=== PATIENT | male | born 1960 | race Caucasian/White ===

== ENCOUNTER → 2023-11-05 12:49 | Outpatient (REF) | payer OTHER, SELFPAY | LOC: RCS 12:49 | PROVIDERS: ATTENDING PHYSICIAN Internal Medicine Cardiovascular Disease; FAMILY PHYSICIAN Family Medicine | DX: R07.89 Other chest pain (principal); I10 Essential (primary) hypertension | CPT/HCPCS: 93017; 93350 ==

== ENCOUNTER → 2023-12-23 15:37 | Outpatient (REF) | payer OTHER, SELFPAY | LOC: DHCBS HW 15:37 | PROVIDERS: ATTENDING PHYSICIAN Internal Medicine Cardiovascular Disease; FAMILY PHYSICIAN Family Medicine | DX: I48.19 Other persistent atrial fibrillation (principal) | CPT/HCPCS: 93306 ==

== ENCOUNTER 2024-05-26 09:30 | Emergency (ER) | payer OTHER, SELFPAY ==
--- NOTE | 2024-05-26 11:14 | EDRN ---
Dr. Patel in to see pt.
[2024-05-26 11:16] VITALS: BMI 26.9
--- NOTE | 2024-05-26 11:20 | ED.GENMED ---
History of Present Illness
General
Chief Complaint: Extremity Pain (non-traumatic)
Time Seen by Provider: 05/26/24 10:52
History of Present Illness
History of Present Illness:
Patient is a 63-year-old male with history of A-fib on Eliquis presenting to the emergency department back pain. Patient states in beginning of April he started develop hip pain that radiated to his knee. He went to an orthopedic doctor thinking
that it was related to his hip. 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 He was started on prednisone. He states that the prednisone did relieve his symptoms. He went back to normal activity and for the past few days is having
severe right-sided back pain that radiates to his knee. No numbness tingling. No weakness. No saddle anesthesia. No fevers chills spinal injections history of IV drug use or diabetes. No urinary retention or incontinence. No trauma. He states
that has been taking Tylenol and oxycodone at home which has been giving some relief however it looks acutely exacerbated this morning. He did take Tylenol prior to arrival and does state that he does feel much better.
Past History
Past History
ED Past Medical History: HTN
ED Past Surgical History: None
Social History
Tobacco: Non-smoker
Alcohol: Occasional
Drug: None
Personal:
Living: with family
Phy Exam
Physical Exam
Physical Exam:
GENERAL: in no acute distress
HEENT: normocephalic, extraocular movements intact, moist oral mucosa
NECK: normal inspection
Back: No midline spinal tenderness, right-sided paraspinal tenderness
RESPIRATORY: no respiratory distress, clear to auscultation bilaterally
CARDIOVASCULAR: regular rate and rhythm
ABDOMEN/: soft, non-distended, non-tender to palpation, no rebound or guarding
EXTREMITIES: non-tender, no edema/swelling
NEUROLOGIC: NEUROLOGIC: alert and oriented x 3, cranial nerves II-XII intact, right upper extremity strength 5/5, left upper extremity strength 5/5, right lower extremity strength 5/5, left lower extremity strength 5/5, normal sensation to light
touch, normal [id number] and valh-[id number], gait not tested formally
SKIN: warm
Course
Orders/Labs/Results
Orders:
Orders
05/26/24 11:14
Oxycodone [Roxicodone] 5 mg PO NOW STA
Prednisone [Deltasone] 50 mg PO NOW STA
Vital Signs
Initial and Last Documented VS:
Initial Vital Signs
Temp Pulse Resp Pulse Ox
98.7 F 86 20 97
05/26/24 09:32 05/26/24 09:32 05/26/24 09:32 05/26/24 09:32
Last Documented Vital Signs
Temp Pulse Resp BP Pulse Ox
98.7 F 73 14 132/95 95
05/26/24 09:32 05/26/24 11:30 05/26/24 11:30 05/26/24 11:30 05/26/24 11:30
MDM/Problems Addressed
Differential Diagnosis Includes:
63-year-old male with history of A-fib on Eliquis presenting to the emergency department with back pain that acutely worsened. Vitals are unremarkable and exam shows a man who is well-appearing with no midline tenderness and no neurodeficits. No
red flags to suggest epidural abscess discitis, cauda equina, tumor, fracture. Likely MSK versus L4 impingement 2/2 arthritis. He did have an x-ray completed outpatient which showed new arthritis. Consider obtaining CT scan however after shared
decision making we will hold off. He is seeing orthopedic surgery tomorrow. Will pain control and discharge after. Will give prescription for physical therapy
*Critical Care Note
Total Time (30-74mins, 75-104mins- exclusive of procedures): Not Applicable
Update Note
Update Note:
On reevaluation patient appears much more comfortable. He is resting in bed without any acute flare. Will discharge at this time with short course of oxycodone.
ED Attending Note
-
Portions of this chart may have been created with voice recognition software.� Occasional wrong word or��sound alike� substitutions may have occurred due to the inherent limitations of voice recognition software.
Discharge Plan
Departure
Patient Disposition: Home (Routine Discharge)
Date of Disposition: 05/26/24
Time of Disposition: 12:04
Patient with high blood pressure during this ER visit?: No
Discharge Problem:
Back pain
Prescriptions:
New
oxycodone 5 mg capsule
5 mg PO Q6H PRN (Reason: Pain) Qty: 7 0RF
No Action
losartan 100 mg tablet
100 mg PO DAILY Qty: 30 0RF
Referrals:
Jamal Arrington MD [Family Provider] -
Activity Restrictions/Additional Instructions:
You were seen in the Emergency Department today for back pain. While you were here we gave you medicine
We would like for you to follow up with your primary care physician for further evaluation. If you experience fever, worsening of your symptoms, or develop any other new or concerning symptoms, please return to the Emergency Department immediately.
Please see the attached sheet for additional information.
We discussed pain medications:
You may take Tylenol (also known as Acetaminophen) for pain.
You may take 1000mg Acetaminophen (two extra-strength tablets) per dose, which should be taken every 6-8 hours, or three times a day.
If you have normal strength Tylenol, you can take 650mg (two normal strength tablets) every 4-6 hours.
Do not take more than 3,000mg (3 grams) of Acetaminophen per day.
Never take more than as directed on the bottle.
You may also benefit from using a Lidocaine Patch (also known as 'Salon Pas'), which is an over the counter pain patch.
Place it just over the site of pain, avoiding areas of skin damage, as per instructions on the patch.
You may use Oxycodone for severe or breakthrough pain. This medication can cause constipation and drowsiness. Do not drive or make important decisions while taking it. Consider using a laxative such as Senna while taking this medication.
Please see your primary care doctor soon to be reevaluated and to make sure that you are improving. We have included information about establishing care with a doctor if you do not have one.
We talked about your evaluation, diagnosis, and treatment in the Emergency Department today. You must see your primary doctor for recheck and followup care in order to evaluate your progress or any changes. Have your doctor recheck the test
results/information from the ED visit. As discussed, RETURN to the ED if you develop worsening/changing symptoms or have no improvement in symptoms after the treatments provided.
Interventions
Interventions:
*Risk Screen - Suicide Last Done: 05/26/24 11:17
*General Assessment Last Done: 05/26/24 11:17
*Neglect/Abuse Screening Last Done: 05/26/24 11:17
ED- Fall Risk Assessment Last Done: 05/26/24 11:17
*ED COVID-19 Vaccine History Last Done: 05/26/24 11:17
ED-Skin Assessment Last Done: 05/26/24 11:30
ED-Peripheral Vascular Assessment Last Done: 05/26/24 11:30
ED-Musculoskeletal Assessment Last Done: 05/26/24 11:30
Discharge Date and Time
Print Language: [place]
[2024-05-26] MEDS: ROXICODONE 5 MG PO (11:21)
[2024-05-26] MEDS: DELTASONE 50 MG PO (11:21)
[2024-05-26 11:30] VITALS: BP 132/95
[2024-05-26 12:00] VITALS: BP 140/93
--- NOTE | 2024-05-26 12:15 | EDRN ---
Dr. Patel in to see pt.
== END 2024-05-26 12:37 | disposition home or self-care (01) ==
LOC: EMR 09:30
PROVIDERS: EMERGENCY PHYSICIAN Student in an Organized Health Care Education/Training Program; FAMILY PHYSICIAN Family Medicine
DX: M54.9 Dorsalgia, unspecified (principal); M25.551 Pain in right hip; M25.561 Pain in right knee; I48.91 Unspecified atrial fibrillation; M47.815 Spondylosis without myelopathy or radiculopathy, thoracolumbar region; I10 Essential (primary) hypertension; Z79.01 Long term (current) use of anticoagulants; Z88.8 Allergy status to other drugs, medicaments and biological substances
CPT/HCPCS: 99283